=== PATIENT | female | born 1955 | race Caucasian/White ===

== ENCOUNTER 2017-06-12 16:00 | Emergency (ER) | payer MEDICAID ==
[~2017-06-12] VITALS: Ht 172.7 cm; Wt 65.8 kg
[2017-06-12] MEDS ORDERED: FURO80TA87 PO (16:34)
[2017-06-12] MEDS ORDERED: MUPI22OI2 TOP (16:34)
[2017-06-12] MEDS ORDERED: LISI10TA PO (16:34)
[2017-06-12] MEDS ORDERED: VITA1TAB15 PO (16:34)
[2017-06-12] MEDS ORDERED: CHOL100034 PO (16:34)
[2017-06-12] MEDS ORDERED: CALC667T2 PO (16:34)
[2017-06-12] MEDS ORDERED: SERT50TA12 PO (16:34)
[2017-06-12] MEDS ORDERED: NIFE60TA9 PO (16:34)
[2017-06-12] MEDS ORDERED: [UNRECOGNIZED DRUG - CODE] IJ (16:34)
[2017-06-12] MEDS ORDERED: OMEP20TA5 PO (16:34)
--- NOTE | 2017-06-12 16:38 | NUR ---
PT IS IN ROOM #1A. DR WALLIS EVALUATED THE PT.
[2017-06-12] MEDS ORDERED: ONDANSETRON 4 MG/2 ML VIAL IV ONE (16:45)
[2017-06-12] MEDS ORDERED: MORPHINE SULFATE 2 MG/1 ML DISP.SYRIN IV ONE (16:45)
[2017-06-12] MEDS ORDERED: MORPHINE SULFATE 4 MG/1 ML DISP.SYRIN ONE (17:13)
[2017-06-12] MEDS ORDERED: ONDANSETRON 4 MG/2 ML VIAL ONE ×2 (17:13→21:22)
[2017-06-12 17:24] LABS: BASOPHILS # (AUTO) 0.1 K/uL (0.0-8.0); BASOPHILS % (AUTO) 0.7 % (0.0-2.0); EOSINOPHILS # (AUTO) 0.1 K/uL (0.0-0.7); EOSINOPHILS % (AUTO) 1.2 % (0.0-7.0); HEMATOCRIT 30.7 % (37-47); HEMOGLOBIN 10.1 G/DL (12.0-16.0); LYMPHOCYTES % (AUTO) 11.2 % (20.5-51.5); MEAN CORPUSCULAR HEMOGLOBIN 31.3 UUG (27.0-31.0); MEAN CORPUSCULAR HGB CONC 33 g/dL (32.0-37.0); MEAN CORPUSCULAR VOLUME 94.5 FL (81.0-99.0); MONOCYTES # (AUTO) 0.4 K/UL (0.1-1.30); MONOCYTES % (AUTO) 3.9 % (0.0-11.0); NEUTROPHILS # (AUTO) 7.5 K/UL (1.8-8.9); PLATELET COUNT (AUTO) 163 K/UL (150-450); RED BLOOD CELL COUNT(AUTO) 3.25 MIL/UL (4.2-5.4); WHITE BLOOD COUNT (AUTO) 9.1 K/UL (4.0-11.2)
[2017-06-12 17:31] LABS: POTASSIUM 5.7 mmol/L (3.5-5.1)
[2017-06-12 17:36] LABS: BILIRUBIN,DIRECT 0.1 mg/dL (0.0-0.2); BILIRUBIN,TOTAL 0.4 mg/dL (0.2-1.0); TOTAL PROTEIN, SERUM 6.3 g/dL (6.4-8.2)
--- NOTE | 2017-06-12 17:59 | NUR ---
[facility] WAS CALLED WITH PT's TRANSFER INFORMATION. WAITING FOR CALL BACK.
[2017-06-12] MEDS ORDERED: INSULIN REGULAR, HUMAN 300 UNIT/3 ML VIAL IV ONE (18:00)
[2017-06-12] MEDS ORDERED: DEXTROSE 50% 50 ML DISP.SYRIN IV ONE (18:00)
[2017-06-12] MEDS ORDERED: CALCIUM CHLORIDE 1 GM/10 ML DISP.SYRIN IVP ONE ×2 (18:00→18:22)
[2017-06-12] MEDS ORDERED: SODIUM BICARBONATE 8.4% 50 MEQ/50 ML DISP.SYRIN IV ONE (18:00)
[2017-06-12] MEDS ORDERED: DEXTROSE 50% 50 ML DISP.SYRIN ONE (18:21)
[2017-06-12] MEDS ORDERED: INSULIN REGULAR, HUMAN 300 UNIT/3 ML VIAL ONE (18:21)
--- NOTE | 2017-06-12 18:33 | NUR ---
DR WALLIS TALKED TO [employer]. PT's CASE NUMBER IS #[id number]. PT IS GOING TO BE TRANSFERED TO [facility] AT [facility].
[2017-06-12] MEDS ORDERED: ONDANSETRON IV *ER 4 MG/2 ML VIAL IV ONE (21:00)
[2017-06-12] MEDS ORDERED: HYDROMORPHONE 1 MG/1 ML DISP.SYRIN IV ONE (21:00)
[2017-06-12] MEDS ORDERED: HYDROMORPHONE 2 MG/1 ML DISP.SYRIN ONE (21:22)
--- NOTE | 2017-06-12 21:46 | NUR ---
report given to Silvestre MARADIAGA at [facility]. Patient accepting MD is Dr Farmer. [phone]
--- NOTE | 2017-06-12 21:47 | NUR ---
Patient Tranfers to outside Facility Physician: Dr Farmer Location: [facility], Room 4057-A Patient picked up by [facility] [address] [facility]. Report given to [employer] Psychiatrist Eda. All belongings taken with patient. No further distress noted. 2 RN skin check complete per protocol. No open skin noted at this time.
== END 2017-06-12 21:53 | disposition short-term general hospital (02) ==
LOC: ER 16:00
DX: I12.0 Hypertensive chronic kidney disease with stage 5 chronic kidney disease or end stage renal disease (principal); E11.22 Type 2 diabetes mellitus with diabetic chronic kidney disease; N18.6 End stage renal disease; E87.5 Hyperkalemia; F32.9 Major depressive disorder, single episode, unspecified; F17.200 Nicotine dependence, unspecified, uncomplicated; E78.5 Hyperlipidemia, unspecified; Z99.2 Dependence on renal dialysis
CPT/HCPCS: 74176; 80048; 80076; 83690; 85025; 93005; 96374; 96375; 96376; 99285; A4663; J1170; J1815; J2270; J2405 ×2; J3490 ×2; J7030; 36415